=== PATIENT | female | born 1995 ===

== ENCOUNTER 2025-04-08 15:24 | Outpatient (AMB) | payer OTHER, SELFPAY ==
--- NOTE | 2025-04-08 15:30 | MHC.PC.OV ---
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 Intake Note: physical and mass or lump on back right side Manual Training Teacher Required: No Accompanied by: Self / Same As Patient Allergies No Known Allergies Allergy (Verified 04/08/25 15:31) Tobacco use date assessed: 04/08/25 Dental Screening Dental Screen Date: 04/08/25 Did you have a dental visit in the last 12 months?: Yes Did you have a dental problem in the last 6 months where you did not have access to dental care?: No Was dental information given to patient?: Patient has dentist HPI HPI Comments History of Present Illness Details History of Present Illness The patient is a 29-year-old female presenting for a general check-up and management of asthma, lipoma, and constipation. Asthma: - Asthma exacerbations occur mainly in fall and spring due to allergens. - No hospitalizations for asthma since childhood. - Uses a rescue inhaler as needed, with a plan to return if usage increases. Lipoma: - Painful lump on left lower back noticed a month ago. - Lump is mobile and round, consistent with lipoma; ultrasound planned for evaluation. Constipation: - Constipation exacerbated by low vegetable diet and insufficient water intake. - Prescribed Dulcolax and Metamucil for management. Stress: - Significant stress due to caring for a medically complex child and father. - Advised to seek support and manage responsibilities to prevent burnout. Review of Systems - Respiratory: Reports asthma exacerbations during fall and spring. Denies recent hospitalizations for asthma. - Gastrointestinal: Reports constipation, exacerbated by diet. Denies other gastrointestinal symptoms. - Dermatological: Reports a painful lump on the left lower back. - Psychological: Reports significant stress due to caregiving responsibilities. 10-point ROS reviewed and negative except as noted in HPI Past Medical History - Asthma, with exacerbations primarily in fall and spring - History of urinary tract infections during teenage years Health Maintenance - Referral to community development director for dietary management of constipation - Ultrasound planned for evaluation of lipoma - Complete blood count and metabolic panel ordered Physical Exam General: Well-appearing, in no acute distress. Vital signs: Within normal limits. HEENT: Normocephalic, atraumatic. PERRLA, EOMI. Conjunctiva clear, sclera anicteric. Oropharynx clear, mucous membranes moist. TMs intact bilaterally. Neck: Supple, no lymphadenopathy, no thyromegaly, no JVD or carotid bruits. Cardiovascular: RRR, normal S1/S2, no murmurs, rubs, or gallops. Peripheral pulses 2+ and symmetric. No edema. Respiratory: Lungs clear to auscultation bilaterally, no wheezes, rales, or rhonchi. Normal effort. Abdomen: Soft, non-tender, non-distended. Normoactive bowel sounds. No hepatosplenomegaly, no masses. Noted a palpable, mobile, round lump on the left lower back, likely a lipoma. MSK: Full range of motion, no joint swelling or deformity. Normal gait. Skin: Warm, dry, intact. No rashes, lesions, or pallor. Noted a persistent lesion on the right pendulatory area, advised monitoring and application of hydrocortisone. Neuro: Alert and oriented x3. Cranial nerves II-XII intact. Strength 5/5 throughout. Sensation intact. Reflexes 2+ symmetric. Normal coordination and gait. Psych: Appropriate mood and affect. Normal judgment and insight. Reports high stress levels due to caregiving responsibilities. Plan 1. Asthma - Prescribed a rescue inhaler for use as needed, with instructions to return if usage increases. 2. Lipoma - Ultrasound ordered to evaluate the lipoma on the left lower back. 3. Constipation - Prescribed Dulcolax and Metamucil to manage constipation, with advice to increase dietary fiber intake. - refer to printing roller polisher 4. Stress - Advised to seek support and manage responsibilities to prevent burnout. Discussion Notes During the visit, I discussed the management of asthma with the patient, emphasizing the use of a rescue inhaler and the need to return if usage increases. We also planned an ultrasound to evaluate the lipoma on her back. For constipation, I prescribed Dulcolax and Metamucil and advised increasing dietary fiber. I addressed her stress, advising her to seek support and manage her responsibilities to prevent burnout. We discussed the importance of follow-up and maintaining communication through the patient portal. Patient Instructions - Use the rescue inhaler as needed and return if usage increases. - Schedule and attend the ultrasound for the lipoma evaluation. - Take Dulcolax at night and Metamucil in the morning to manage constipation. - Increase dietary fiber intake. - Seek support and manage responsibilities to prevent burnout. - Set up the patient portal for communication and follow-up. PFSH Family History (Updated 04/08/25 @ 15:40 by Jak Underwood MA) Father High blood pressure High cholesterol Mother Diabetes Social History (Updated 04/08/25 @ 15:32 by Jak Underwood MA) Housing: House Alcohol intake: current Alcohol intake frequency: holidays/special occasions only Patient Tobacco Use Status: Never used Tobacco service: No Current occupational status: student Cognitive needs: No Hearing needs: No Vision needs: Yes (reading) Questionnaire PHQ-9 Over the last 2 weeks, how often have you been bothered by any of the following problems? 1. Little interest or pleasure in doing things: not at all 2. Feeling down, depressed, or hopeless: not at all 3. Trouble falling or staying asleep, or sleeping too much: not at all 4. Feeling tired or having little energy: not at all 5. Poor appetite or overeating: several days 6. Feeling bad about yourself - or that you are a failure or have let yourself or your family down: not at all 7. Trouble concentrating on things, such as reading the newspaper or watching television: not at all 8. Moving or speaking so slowly that other people could have noticed. Or the opposite - being so fidgety or restless that you have been moving around a lot more than usual: not at all 9. Thoughts that you would be better off or of hurting yourself in some way: not at all Total score: 1 Source: Developed by Drs. Yobani Andre, Taina Lopez, Subhash Valencia and colleagues, with an educational annika from [employer]. Thrive Questionnaire Date Thrive assessed: 04/01/25 I am a: Patient What is your living situation today?: I have a steady place to live Within the past 12 months, did the food you bought not last and you didn't have the money to get more?: Never true Within the past 12 months, did you worry whether your food would run out before you got money to buy more?: Never true Do you have trouble paying for medicines?: No Do you have trouble getting transportation to medical appointments?: No Do you have trouble paying your heating and electricity bill?: No Do you have trouble taking care of your child, family member or friend?: No Do you have trouble with day-to-day activities such as bathing, preparing meals, shopping, managing finances, etc.?: No Are you currently unemployed and looking for a job?: No Are you interested in more education?: I choose not to answer this question Please select the resources that you would like help with: Utilities Currently or been in a relationship where the following occur: No concerns reported THRIVE Score: 0 AUDIT C Alcohol Use Questionnaire (AUDIT-C) 1. How often do you have a drink containing alcohol?: Monthly or less 2. How many drinks containing alcohol do you have on a typical day when you are drinking?: 1 or 2 3. How often do you have six or more drinks on one occasion?: Less than monthly Total Score: 2 ROGER-7 AMB Questionnaire ROGER-7 Date ROGER - 7 assessed: 04/08/25 Feeling nervous, anxious, or on edge: 1 = Several days Not being able to stop or control worryin = Not at all Worrying too much about different things: 1 = Several days Trouble relaxin = Several days Being so restless that it is hard to sit still: 1 = Several days Becoming easily annoyed or irritable: 2 = More than half the days Feeling afraid as if something awful might happen: 0 = Not at all Total ROGER-7 score (0-4 normal; 5-9 mild; 10-14 moderate; 15-21 severe): 6 Source: Developed by Drs. Yobani Andre, Taina Lopez, Subhash Valencia and colleagues, with an educational annika from [employer]. ACT Questionnaire In the past 4 weeks, how much of the time did your asthma keep you from getting as much done at work, school or at home?: None of the time During the past 4 weeks, how often have you had shortness of breath?: Not at all During the past 4 weeks, how often did your asthma symptoms wake you up at night or earlier than usual in the morning?: Not at all During the past 4 weeks, how often have you had to use your rescue inhaler or nebulizer medication?: Not at all How would you rate your asthma control during the past 4 weeks?: Well controlled Score: 24 Physical exam (Primary Care) Tobacco/Smoking Status: Tobacco use Status Tobacco use date assessed 04/08/25 04/08/25 15:33 Patient Tobacco Use Status Never used Tobacco 04/08/25 15:33 PHQ-9: PHQ-9 Score PHQ-9: Total score 1 04/08/25 15:33 Thrive Assessment: Date of Thrive Assessment Date Thrive assessed 04/01/25 04/08/25 15:33 Currently or been in a relationship where the following occur: No concerns reported Coding Level of Care Code New Pt Level 3 (75406) Diagnoses Establishing care with new doctor, encounter for Z76.89 Encounter for screening, unspecified Z13.9 Hypertension screen Z13.6 Screening for lipoid disorders Z13.220 Screening for diabetes mellitus Z13.1 Screening for depression Z13.31 Screening for HIV (human immunodeficiency virus) Z11.4 Routine screening for STI (sexually transmitted infection) Z11.3 Class 1 obesity E66.811 Asthma, mild intermittent J45.20 Constipation K59.00 Hemorrhoids K64.9 Lipoma D17.9 Stress at home F43.9 Stress due to illness of family member Z63.79 Assessment & Plan Assessment & Plan (1) Establishing care with new doctor, encounter for: Code(s): Z76.89 - Persons encountering health services in other specified circumstances (2) Encounter for screening, unspecified: Code(s): Z13.9 - Encounter for screening, unspecified (3) Hypertension screen: Code(s): Z13.6 - Encounter for screening for cardiovascular disorders (4) Screening for lipoid disorders: Code(s): Z13.220 - Encounter for screening for lipoid disorders (5) Screening for diabetes mellitus: Code(s): Z13.1 - Encounter for screening for diabetes mellitus (6) Screening for depression: Code(s): Z13.31 - Encounter for screening for depression (7) Screening for HIV (human immunodeficiency virus): Code(s): Z11.4 - Encounter for screening for human immunodeficiency virus [HIV] (8) Routine screening for STI (sexually transmitted infection): Code(s): Z11.3 - Encounter for screening for infections with a predominantly sexual mode of transmission (9) Class 1 obesity: Code(s): E66.811 - Obesity, class 1 (10) Asthma, mild intermittent: Code(s): J45.20 - Mild intermittent asthma, uncomplicated (11) Constipation: Code(s): K59.00 - Constipation, unspecified (12) Hemorrhoids: Code(s): K64.9 - Unspecified hemorrhoids (13) Lipoma: Code(s): D17.9 - Benign lipomatous neoplasm, unspecified (14) Stress at home: Code(s): F43.9 - Reaction to severe stress, unspecified (15) Stress due to illness of family member: Code(s): Z63.79 - Other stressful life events affecting family and household Plan Orders: Orders Hemoglobin A1c Today Z13.9 - Encounter for screening, unspecified, Z76.89 - Persons encountering health services in other specified circumstances Hepatitis B Surface Antibody Today Z13.9 - Encounter for screening, unspecified, Z76.89 - Persons encountering health services in other specified circumstances Hepatitis B Surface Antigen Today Z13.9 - Encounter for screening, unspecified, Z76.89 - Persons encountering health services in other specified circumstances Hepatitis C Antibody Today Z13.9 - Encounter for screening, unspecified, Z76.89 - Persons encountering health services in other specified circumstances Lipid Panel Today Z13.9 - Encounter for screening, unspecified, Z76.89 - Persons encountering health services in other specified circumstances Vitamin D 1,25 dihydroxy Today Z13.9 - Encounter for screening, unspecified, Z76.89 - Persons encountering health services in other specified circumstances HIV Ab/Ag Today Z13.9 - Encounter for screening, unspecified, Z76.89 - Persons encountering health services in other specified circumstances Chlamydia Species Ab Panel Today Z13.9 - Encounter for screening, unspecified, Z76.89 - Persons encountering health services in other specified circumstances US soft tiss head and/or neck Today D17.9 - Benign lipomatous neoplasm, unspecified Complete Blood Count Auto Diff Today Z13.9 - Encounter for screening, unspecified, Z76.89 - Persons encountering health services in other specified circumstances Comprehensive Met. Panel Today Z13.9 - Encounter for screening, unspecified, Z76.89 - Persons encountering health services in other specified circumstances UA CC w/rflx Micro + Cult Today Z13.9 - Encounter for screening, unspecified, Z76.89 - Persons encountering health services in other specified circumstances Vitamin B12 and Folate Today Z13.9 - Encounter for screening, unspecified, Z76.89 - Persons encountering health services in other specified circumstances CT NG by PCR Urine Today Z13.9 - Encounter for screening, unspecified, Z76.89 - Persons encountering health services in other specified circumstances Syphilis Screen Today Z13.9 - Encounter for screening, unspecified, Z76.89 - Persons encountering health services in other specified circumstances Referrals Nurse Navigator Referral E66.811 - Obesity, class 1, K59.00 - Constipation, unspecified, K64.9 - Unspecified hemorrhoids Medications: New albuterol sulfate 90 mcg/actuation (Ventolin HFA) 2 puffs inhalation Q6H PRN 8.5 grams 0RF shortness of breath or wheezing bisacodyl 5 mg PO BEDTIME 2 tabs 0RF 2 days K59.00 - Constipation, unspecified psyllium husk 3 grams PO .once a day in the am 340 grams 0RF
[2025-04-08 15:34] VITALS: BP 114/70; PULSE 67; RESP 16; TEMP 36.8; O2SAT 100; BMI 31.8
== END 2025-04-08 16:16 | disposition home or self-care (01) ==
LOC: HO.HMCFMS 15:25
PROVIDERS: Visit Provider Student in an Organized Health Care Education/Training Program
DX: J45.20 Mild intermittent asthma, uncomplicated (principal); D17.9 Benign lipomatous neoplasm, unspecified; K59.00 Constipation, unspecified; K64.9 Unspecified hemorrhoids; Z63.79 Other stressful life events affecting family and household; F43.9 Reaction to severe stress, unspecified; E66.811 Obesity, class 1

== ENCOUNTER 2025-04-08 15:24 | Outpatient (REF) | payer OTHER, SELFPAY ==
--- OUTSIDE RECORDS SUMMARY | 2025-04-09 15:09 | XMS_ITS | Clinical Summary ---
Author Organization [facility] Address [address] [place] [address] Care Team Providers Care Autocad Detailer Name Role Phone Unavailable Primary Care Provider Unavailabl e Surgical History Surgery Date Site/Laterality Comments SECTION PROCEDURE: HISTORICAL DELIVERY; COMMENT: x1 WISDOM TOOTH EXTRACTION PROCEDURE: HISTORICAL WISDOM TEETH EXTRACTION Medical History Medical History Date Comments Patient denies medical problems DX:Patient denies medical problems Social History Tobacco Use Types Packs/Day Years Used Date Smoking Tobacco: Never Smokeless Tobacco: Never Comments Unknown Sex and Gender Information Value Date Recorded Sex Assigned at Not on file Legal Sex Female 10:22 AM EST Gender Identity Not on file Sexual Orientation Not on file Obstetrics History Plan of Treatment Health Maintenance Due Date Last Done Comments DTaP,Tdap,and Td Vaccines (1 - Tdap) 2013 Hepatitis B Vaccines (1 of 3 - 19+ 3-dose series) 2013 Cervical Cancer Screening: P ap Smear 2015 Depression Screening 07/18/2024 COVID-19 Vaccine ( - 2023-2 5 season) 2025 Influenza Vaccine (#1) 2025 HIB Vaccines Aged Out No longer eligi ble based on patient's age to complete this topic HPV Vaccines Aged Out No longer eligi ble based on patient's age to complete this topic Hepatitis A Vaccines Aged Out No long er eligible based on patient's age to complete this topic IPV Vaccines Aged Out No longer eligi ble based on patient's age to complete this topic MMR Vaccines Aged Out No longer eligi ble based on patient's age to complete this topic Meningococcal ACWY Vaccine Aged Out N o longer eligible based on patient's age to complete this topic Meningococcal B Vaccine Aged Out No l onger eligible based on patient's age to complete this topic Pneumococcal Vaccine: Pediat rics (0 to 5 Years) and At-Risk Patients (6 to 49 Years) Aged Out No longer eligible b ased on patient's age to complete this topic RSV Immunization Patients Un eris 20 months Aged Out No longer eligible b ased on patient's age to complete this topic Varicella Vaccines Aged Out No longer eligible based on patient's age to complete this topic
== END 2025-04-08 15:25 | disposition home or self-care (01) ==
LOC: HO.HKASLDS 15:24
PROVIDERS: Visit Provider Student in an Organized Health Care Education/Training Program
DX: Z13.9 Encounter for screening, unspecified (principal); Z76.89 Persons encountering health services in other specified circumstances; E66.811 Obesity, class 1; K59.00 Constipation, unspecified; K64.9 Unspecified hemorrhoids; D17.9 Benign lipomatous neoplasm, unspecified; Z13.6 Encounter for screening for cardiovascular disorders; Z13.220 Encounter for screening for lipoid disorders; Z13.1 Encounter for screening for diabetes mellitus; Z13.31 Encounter for screening for depression; Z11.4 Encounter for screening for human immunodeficiency virus [HIV]; Z11.3 Encounter for screening for infections with a predominantly sexual mode of transmission; J45.20 Mild intermittent asthma, uncomplicated; F43.9 Reaction to severe stress, unspecified; Z63.79 Other stressful life events affecting family and household; Z13.89 Encounter for screening for other disorder

== ENCOUNTER 2025-04-09 12:19 | Outpatient (REF) | payer OTHER, SELFPAY ==
[2025-04-09 18:46] LABS: MANUAL DIFF FLAG NO
[2025-04-09 18:52] LABS: Hematocrit 39.1 % (37.0-47.0); Hemoglobin 12.6 g/dl (12.0-16.0); Imm Gran Abs Auto 0.01 X10*3/uL (0.00-0.03); Imm Gran Pct Auto 0.2 % (0.0-0.4); Lymphocytes Absolute Auto 2.5 X10*3/uL (1.2-4.9); Mean Corpuscular HGB Conc 32.2 g/dl (31.0-35.0); Mean Corpuscular Hemoglobin 29.7 pg (27.0-33.0); Mean Corpuscular Volume 92.2 fL (80.0-98.0); NRBC Abs Auto 0.000 X10*3/uL (0.0-0.012); NRBC Pct Auto 0.0 /100WBC (0.0-0.2); Platelet Count 322 X10*3/uL (160-400); Red Blood Count 4.24 X10*6/uL (4.20-5.50); White Blood Count 6.4 X10*3/uL (4.8-10.8)
[2025-04-09 18:53] LABS: Total Hemoglobin (HGBA1C) 3339.6667 umol/L
[2025-04-09 18:55] LABS: Appearance Urine Clear; Glucose Urine UA Negative (Negative); PH 7.5 (5.0-9.0); Specific Gravity - Urine <= 1.005 (1.005-1.025)
[2025-04-09 18:59] LABS: Alanine Aminotransferase 23 U/L (0-31); Albumin Level 4.8 g/dL (3.5-5.0); Alkaline Phosphatase 60 U/L (39-117); Anion Gap 11 (12-20); Aspartate Amino Transferase 34 U/L (5-31); Blood Urea Nitrogen 11 mg/dL (9-16); Calcium 9.6 mg/dL (8.4-10.2); Carbon Dioxide 26 mmol/L (22-29); Chloride 105 mmol/L (96-108); Cholesterol 223 mg/dL (<200); Estimated Glomerular Filt Rate > 60; HDL Cholesterol 59 mg/dL (>40); Potassium 4.2 mmol/L (3.3-5.1); Sodium 138 mmol/L (135-145); Total Protein 8.3 g/dL (6.5-8.0); Triglycerides 130 mg/dL (<150)
[2025-04-09 19:40] LABS: Folate 12.5 ng/mL (> or = 4.0); Vitamin B12 743 pg/mL (200-900)
[2025-04-10 02:38] LABS: CT PCR Urine NOT DETECTED (Not Detect.); NG PCR Urine NOT DETECTED (Not Detect.)
[2025-04-10 08:46] LABS: HBS Num1 0.67 mIU/mL (0-7.99); HIV Num 1 0.05 S/CO (0.00-0.99); ~HepC Num1 0.08 S/CO (0.00-0.79); ~Hepatitis B Surface Antibody NONREACTIVE (Nonreactive); ~Hepatitis C Antibody Nonreactive (Nonreactive)
[2025-04-10 09:14] LABS: Syphilis Screen Nonreactive (Nonreactive)
[2025-04-10 11:00] LABS: HBsAGNum1 0.29 S/CO (0.00-0.99); Hepatitis B Surface Antigen Negative (Negative)
[2025-04-14 04:58] LABS: VITAMIN D (1,25 OH) D3 39 pg/mL; Vit D (1,25-Dihydroxy) Total 39 pg/mL (18-72); Vitamin D (1,25 OH) D2 <8 pg/mL
[2025-04-16 22:59] LABS: Chlamydia Trachomatis IgA <1:16 titer (<1:16)
== END 2025-04-09 12:20 | disposition home or self-care (01) ==
LOC: HO.HKASLDS 12:19
PROVIDERS: Visit Provider Student in an Organized Health Care Education/Training Program
DX: Z13.89 Encounter for screening for other disorder (principal); Z13.6 Encounter for screening for cardiovascular disorders; Z13.1 Encounter for screening for diabetes mellitus; Z11.4 Encounter for screening for human immunodeficiency virus [HIV]; Z76.89 Persons encountering health services in other specified circumstances; Z20.2 Contact with and (suspected) exposure to infections with a predominantly sexual mode of transmission
CPT/HCPCS: 80053; 80061; 81003; 82607; 82652; 82746; 83036; 85025; 86631; 86632; 86706; 86780; 86803; 87340; 87389; 87491; 87591

== ENCOUNTER 2025-04-23 14:36 | Outpatient (AMB) | payer OTHER, SELFPAY ==
--- NOTE | 2025-04-23 14:39 | MHC.AMNUTRGE ---
Intake Visit Reasons: Initial Nutrition Assessment Allergies No Known Allergies Allergy (Verified 04/08/25 15:31) Nutrition Presentation Details: Has a disabled daughter, single mom. Had to leave job to focus on caring for family and going to school. Trying to increase veggies and decrease rice. No GDM. Very minimal fluid intake-now has a kidney stone and struggles with hemorrhoids. Just saw a urologist in [place] who prescribed pt a medication to reduce urinary frequency-Gemtesa tablets 75 mg tablet QDay. Pt understands the importance of increased hydration. Reason for consult: elevated BMI Unstable SDH: Reports food insecurity (Just reapplied for SNAP) GI symptoms: reports constipation (2 days in between, bloating, pain, uses coffee in the AM to help) Food allergies/aversions: No Smoking assessment: Reviewed (none) Alcohol assessment: Other (very infrequent) Diet Assmnt Details: Has tried several diets including fasting, exercise. Feels stuck at 175# Dietary counseling: Mediterranean (High fiber (gradual increase), good hydration) Who buys your food: self Who prepares/cooks your food: self Meal frequency: regular: breakfast (coffee, whole milk, 2 spoons sugar, 2 eggs, ham/turkey, cheese, 2 wheat bread), lunch (sometimes skips or have leftovers), dinner (meat, rice/pasta) and snacks (meat, rice/pasta) Lifestyle Emotional Eating: Reports stress Eating out: 1-3 times/week Family support: No Exercise: No Present caloric intake meeting needs: No (skips meals) Food frequency: Dairy: several times weekly, Fruit: occasionally, Vegetables: occasionally, Grains/pasta/breads/cereal (carbs): daily, Meats/poultry/fish (protein): daily, Processed foods/meats: daily, Restaurants/fast foods: occasionally, Water: occasionally, Coffee: daily and Alcohol: occasionally BS Monitoring Most Recent Diabetes Results: Cholesterol, (<200) 223 mg/dL H 04/09/25 HDL Cholesterol, (>40) 59 mg/dL 04/09/25 Triglycerides, (<150) 130 mg/dL 04/09/25 AST, (5-31) 34 U/L H 04/09/25 ALT, (0-31) 23 U/L 04/09/25 Assessment Nutrition recommendation: RD nutrition education Comment: gradual increase of fiber while increasing hydration Focused findings Nutrition-focused findings: constipation HDT-Llpzies-GzEdouard Equation Calculated Activity Level: Sedentary Diagnosis Nutrition problem #1: other (Altered GI function) As related to (etiology) #1: inadequate oral intake (FLUID AND FIBER) As evidenced by (sign/symptom) #1: constipation Monitoring/Goals Nutrition problem monitoring: total energy intake, level of knowledge/skill, total PRO intake and oral fluids Nutrition goal/outcome: list 3 high fiber foods Outcome progress: verbalized understanding Learning/Education Readiness to learn: excellent Stages of change: action Educational materials provided: Yes Date of nutrition screenin04/23/25 Date of nutritional follow-up: 05/21/25 Follow up Follow-up frequency: monthly Time Outcome assessment time: 60 minutes PFSH Family History (Updated 04/08/25 @ 15:41 by Jak Underwood MA) Father High blood pressure High cholesterol Mother Diabetes Social History (Updated 04/08/25 @ 15:41 by Jak Underwood MA) Housing: House Alcohol intake: current Alcohol intake frequency: holidays/special occasions only Patient Tobacco Use Status: Never used Tobacco service: No Current occupational status: student Cognitive needs: No Hearing needs: No Vision needs: Yes (reading) Review of Systems GI Reports constipation (2 days in between, bloating, pain, uses coffee in the AM to help) Telehealth Telehealth Telehealth Platform: Other (please specify) Location of provider rendering services: practice address Location of patient: address on file Patient Identification confirmed using: Name, : Yes Telehealth method: video Patient verbally consented to treatment: Yes Minutes spent on Phone/Video with Pt.: 60 Assessment & Plan Assessment & Plan (1) Constipation: Code(s): K59.00 - Constipation, unspecified (2) Class 1 obesity: Code(s): E66.811 - Obesity, class 1 Plan 1. Increase water intake throughout week 2. 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 Increase veggie intake 3-4 days per week 4. Think about moving your body more-this will help with going?to the bathroom Coding Level of Care Code Nutr Indiv Intake (72201) Diagnoses Constipation K59.00 Class 1 obesity E66.811
--- OUTSIDE RECORDS SUMMARY | 2025-04-23 17:56 | XMS_ITS | Clinical Summary ---
Author Organization [facility] Address [address] [place] [address] Care Team Providers Care Inspector Paper Products Name Role Phone Unavailable Primary Care Provider [...] Cervical Cancer Screening: P ap Smear 2015 HPV Vaccines (1 - 3-dose SCD M series) 2021 Depression Screening 07/18/2024 COVID-19 Vaccine ( - 2023-2 5 season) 2025 Influenza Vaccine (#1) 2025 RSV Immunization Adult Patie nts (1 - 1-dose 75+ series) 2069 HIB Vaccines Aged Out No longer eligi [...]
== END 2025-04-23 15:19 | disposition home or self-care (01) ==
LOC: HO.HMCCN 14:36
PROVIDERS: PCP Student in an Organized Health Care Education/Training Program; Visit Provider Dietitian, Registered
DX: K59.00 Constipation, unspecified (principal); E66.811 Obesity, class 1

== ENCOUNTER → 2025-04-23 14:36 | Outpatient (BNVA) | payer OTHER, SELFPAY | PROVIDERS: PCP Student in an Organized Health Care Education/Training Program; Visit Provider Dietitian, Registered | DX: K59.00 Constipation, unspecified (principal); E66.811 Obesity, class 1 | CPT/HCPCS: 97802 ==

== ENCOUNTER 2025-04-29 14:09 | Outpatient (AMB) | payer OTHER, SELFPAY ==
--- NOTE | 2025-04-29 14:12 | A.OFFPC_ITS ---
Vital Signs 04/29/25 14:14 Height 5 ft 10.87 in Weight 162 lb BMI 22.7 BP 109/57 L Blood Pressure Location Rt brachial Position Sitting Pulse 69 Pulse Source Pulse Oximeter Temp 98.2 F Temp Source Oral Pulse Oximetry (%) 96 Oxygen Delivery Method Room Air Intake Visit Reasons: 2 wk f/u- r/s'd from 04/26/25 Intake Note: physical and mass or lump on back right side Machine Boss Required: No Accompanied by: Self / Same As Patient Allergies No Known Allergies Allergy (Verified 04/29/25 14:13) Tobacco use date assessed: 04/29/25 Dental Screening Dental Screen Date: 04/29/25 Did you have a dental visit in the last 12 months?: Yes Did you have a dental problem in the last 6 months where you did not have access to dental care?: No Was dental information given to patient?: Patient has dentist HPI HPI Comments History of Present Illness Details Consent Patient was informed and verbally consented to the use of an ambient scribe for clinic note documentation during this visit. History of Present Illness The patient is a 29-year-old female presenting with nephrolithiasis and hypercholesterolemia. Nephrolithiasis: - The patient reports having a kidney st one and has consulted a urologist for management. Overactive bladder - Urology placed her on Gemtesa as per p atient she feels much better Hypercholesterolemia: - The patient's cholesterol levels are e levated with a total cholesterol of 223 mg/dL and LDL cholesterol of 138 mg/dL. - Dietary modifications have been discus sed to manage cholesterol levels without medication due to the patient's young age. Constipation: - The patient experiences constipation a nd has been advised to increase fiber intake and hydration. Asthma: currently well managed. Review of Systems - Gastrointestinal: Reports constipation . Denies abdominal pain or bloating. - Respiratory: Reports asthma. Denies cu rrent wheezing or shortness of breath. 10-point ROS reviewed and negative excep t as noted in HPI Past Medical History Health Maintenance - Dietary counseling for hypercholestero lemia management, focusing on reducing intake of high-fat foods such as cheese and red meat. Physical Exam General: Well-appearing, in no acute distress. Vital signs: Within normal limits. HEENT: Normocephalic, atraumatic. PERRLA, EOMI. Conjunctiva clear, sclera anicteric. Oropharynx clear, mucous membranes moist. TMs intact bilaterally. Neck: Supple, no lymphadenopathy, no thyromegaly, no JVD or carotid bruits. Cardiovascular: RRR, normal S1/S2, no murmurs, rubs, or gallops. Peripheral pulses 2+ and symmetric. No edema. Respiratory: Lungs clear to auscultation bilaterally, no wheezes, rales, or rhonchi. Normal effort. Abdomen: Soft, non-tender, non-distended. Normoactive bowel sounds. No hepatospl enomegaly, no masses. MSK: Full range of motion, no joint swelling or deformity. Normal gait. Skin: Warm, dry, intact. No rashes, lesions, or pallor. Neuro: Alert and oriented x3. Cranial nerves II-XII intact. Strength 5/5 throughout. Sensation intact. Reflexes 2+ symmetric. Normal coordination and gait. Psych: Appropriate mood and affect. Normal judgment and insight. Plan 1. Nephrolithiasis - The patient is advised to follow up wi th a urologist for further management of the kidney stone. she was also placed on Gemtesa for overactive bladder as per patient has good affect 2. Hypercholesterolemia - Dietary modifications are recommended to lower cholesterol levels, with a follow-up blood test in 3 to 6 months to monitor progress. 3. Constipation - Increase fiber intake and hydration to manage constipation symptoms. 4. Asthma currently well managed continue with rescue inhaler as needed 5. Overactive bladder Continue Gemtesa Discussion Notes I discussed with the patient the importance of dietary changes to manage her elevated cholesterol levels, emphasizing the reduction of high-fat foods such as cheese and red meat. We also talked about the need for follow-up with a urologist for her kidney stone and the importance of increasing fiber and water intake to alleviate constipation. A follow-up blood test was recommended in 3 to 6 months to assess cholesterol levels. Patient Instructions - Follow up with the urologist for kidne y stone management. - Reduce intake of high-fat foods such a s cheese and red meat to lower cholesterol. - Increase fiber intake and drink more w ater to help with constipation. - Return for a follow-up blood test in 3 to 6 months to monitor cholesterol levels. Medical Decision Making The decision to manage hypercholesterolemia through dietary changes was based on the patient's young age and the potential for lifestyle modifications to effectively lower cholesterol levels. Monitoring will be done through a follow- up blood test in 3 to 6 months. The management of nephrolithiasis involves referral to a urologist for specialized care. Constipation is addressed with increased fiber and hydration, as these are non-invasive and effective first- line treatments. Total time spent caring for the patient today was 30 minutes. This includes time spent before the visit reviewing the chart, time spent documenting, and time spent reviewing laboratory results, diagnostic imaging, medications, performing a medically necessary evaluation, counseling on diagnoses, care coordination, ordering appropriate tests, ordering appropriate medications. [facility] Family History Father High blood pressure High cholesterol Mother Diabetes Social History Housing: House Alcohol intake: current Alcohol intake frequency: holidays/special occasions only Patient Tobacco Use Status: Never used Tobacco service: No Current occupational status: student Cognitive needs: No Hearing needs: No Vision needs: Yes (reading) Questionnaire PHQ-9 Over the last 2 weeks, how often have you been bothered by any of the following problems? 1. Little interest or pleasure in doing things: not at all 2. Feeling down, depressed, or hopeless: not at all 3. Trouble falling or staying asleep, or sleeping too much: not at all 4. Feeling tired or having little energy: not at all 5. Poor appetite or overeating: several days 6. Feeling bad about yourself - or that you are a failure or have let yourself or your family down: not at all 7. Trouble concentrating on things, such as reading the newspaper or watching television: not at all 8. Moving or speaking so slowly that other people could have noticed. Or the opposite - being so fidgety or restless that you have been moving around a lot more than usual: not at all 9. Thoughts that you would be better off or of hurting yourself in some way: not at all Total score: 1 Source: Developed by Drs. Yobani Andre, Taina Lopez, Subhash Valencia and colleagues, with an educational annika from [employer] Thrive Questionnaire Date Thrive assessed: 04/29/25 I am a: Patient What is your living situation today?: I have a steady place to live Within the past 12 months, did the food you bought not last and you didn't have the money to get more?: Never true Within the past 12 months, did you worry whether your food would run out before you got money to buy more?: Never true Do you have trouble paying for medicines?: No Do you have trouble getting transportation to medical appointments?: No Do you have trouble paying your heating and electricity bill?: No Do you have trouble taking care of your child, family member or friend?: No Do you have trouble with day-to-day activities such as bathing, preparing meals, shopping, managing finances, etc.?: No Are you currently unemployed and looking for a job?: No Are you interested in more education?: I choose not to answer this question Please select the resources that you would like help with: Utilities Currently or been in a relationship where the following occur: No concerns reported THRIVE Score: 0 AUDIT C Alcohol Use Questionnaire (AUDIT-C) 1. How often do you have a drink containing alcohol?: Monthly or less 2. How many drinks containing alcohol do you have on a typical day when you are drinking?: 1 or 2 3. How often do you have six or more drinks on one occasion?: Less than monthly Total Score: 2 ROGER-7 AMB Questionnaire ROGER-7 Date ROGER - 7 assessed: 04/29/25 Feeling nervous, anxious, or on edge: 1 = Several days Not being able to stop or control worryin = Not at all Worrying too much about different things: 1 = Several days Trouble relaxin = Several days Being so restless that it is hard to sit still: 1 = Several days Becoming easily annoyed or irritable: 2 = More than half the days Feeling afraid as if something awful might happen: 0 = Not at all Total ROGER-7 score (0-4 normal; 5-9 mild; 10-14 moderate; 15-21 severe): 6 Source: Developed by Drs. Yobani Andre, Taina Lopez, Subhash Valencia and colleagues, with an educational annika from [employer] Physical exam (Primary Care) Vital Signs: Last Vital Signs Temp 98.2 F 04/29/25 14:14 Pulse 69 04/29/25 14:14 BP 109/57 L 04/29/25 14:14 Pulse Ox 96 04/29/25 14:14 Oxygen Delivery Method Room Air 04/29/25 14:14 BMI result Body Mass Index 22.7 Tobacco/Smoking Status: Tobacco use Status Tobacco use date assessed 04/29/25 04/29/25 14:22 Patient Tobacco Use Status Never used Tobacco 04/29/25 14:22 PHQ-9: PHQ-9 Score PHQ-9: Total score 1 04/29/25 14:22 Thrive Assessment: Date of Thrive Assessment Date Thrive assessed 04/29/25 04/29/25 14:22 Currently or been in a relationship where the following occur: No concerns reported Coding Level of Care Code Est Pt Level 4 (90626) Diagnoses Nephrolithiasis N20.0 Hypercholesterolemia E78.00 Constipation K59.00 Overactive bladder N32.81 Mild intermittent asthma J45.20 Assessment & Plan Assessment & Plan (1) Nephrolithiasis: Code(s): N20.0 - Calculus of kidney (2) Hypercholesterolemia: Code(s): E78.00 - Pure hypercholesterolemia, unspecified (3) Constipation: Code(s): K59.00 - Constipation, unspecified (4) Overactive bladder: Code(s): N32.81 - Overactive bladder (5) Mild intermittent asthma: Code(s): J45.20 - Mild intermittent asthma, uncomplicated Plan Medications: Changed From bisacodyl 5 mg PO BEDTIME 2 days 2 tabs 0RF K59.00 - Constipation, unspecified To bisacodyl 5 mg PO BEDTIME 30 tabs 0RF 30 days K59.00 - Constipation, unspecified
[2025-04-29 14:14] VITALS: BP 109/57; PULSE 69; TEMP 36.8; O2SAT 96; BMI 22.7
== END 2025-04-29 16:46 | disposition home or self-care (01) ==
LOC: HO.HMCFMS 14:10
PROVIDERS: Visit Provider Student in an Organized Health Care Education/Training Program
DX: N20.0 Calculus of kidney (principal); E78.00 Pure hypercholesterolemia, unspecified; K59.00 Constipation, unspecified; N32.81 Overactive bladder; J45.20 Mild intermittent asthma, uncomplicated

== ENCOUNTER 2025-05-21 13:12 | Outpatient (REF) | payer OTHER, SELFPAY ==
--- NOTE | ~2025-05-21 | US_ITS ---
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 FINDINGS: Sonographic examination of a palpable abnormality in the left lower back was performed. Within the subcutaneous fat, there is a nonspecific 6 x 5 x 6 mm echogenic focus. US/US soft tiss head and/or neck IMPRESSION: Nonspecific 6 x 5 x 6 mm echogenic focus in the subcutaneous fat of the lower back. Electronically signed by: Yobani Dillon MD 05/21/2025 02:43 PM EST
--- OUTSIDE RECORDS SUMMARY | 2025-05-21 16:09 | XMS_ITS | Clinical Summary ---
Author Organization [facility] Address [address] [place] [address] Care Team Providers Care Computer Applications Engineer Name Role Phone Unavailable Primary Care Provider [...]
== END 2025-05-21 13:13 | disposition home or self-care (01) ==
LOC: HO.HMGCX 13:12
PROVIDERS: PCP Student in an Organized Health Care Education/Training Program; Visit Provider Student in an Organized Health Care Education/Training Program
DX: D17.9 Benign lipomatous neoplasm, unspecified (principal)
CPT/HCPCS: 76536

== ENCOUNTER → 2025-05-21 13:14 | Outpatient (BNV) | payer OTHER, SELFPAY | PROVIDERS: PCP Student in an Organized Health Care Education/Training Program; Visit Provider Radiology Diagnostic Radiology | DX: D17.9 Benign lipomatous neoplasm, unspecified (principal) | CPT/HCPCS: 76536 ==